=== PATIENT | male | born 1945 ===

== ENCOUNTER 2024-12-10 09:56 | Emergency (ER) | payer MEDICARE, MEDICAID, SELFPAY ==
[2024-12-10 10:16] VITALS: BP 106/68; PULSE 106; TEMP 36.5; O2SAT 98; BMI 27.4
[2024-12-10 10:55] VITALS: BP 149/89; PULSE 102; RESP 16; O2SAT 97
--- NOTE | 2024-12-10 10:56 | W.ED.MALEGU ---
HPI - Male Genitourinary General: Chief complaint: Urogenital-Male Stated complaint: trouble urinating, pain Time Seen by Provider: 12/10/24 10:52 Source: patient Mode of arrival: ambulatory Limitations: no limitations History of Present Illness: 79-year-old male states that since Tuesday has been having dysuria. He states it shaw when he urinates. He denies any abdominal pain denies any fever denies urinating blood. Denies any worse improved factors. Associated symptoms: Reports dysuria; Deny nausea or vomiting Related Data Previous Rx's ?Medication ?Instructions ?Recorded cephalexin 500 mg capsule 500 mg PO TID 7 days #21 caps 12/10/24 Allergies Allergy/AdvReac Type Severity Reaction Status Date / Time No Known Allergies Allergy Verified 12/10/24 10:22 Review of Systems Const: Denies: fever(s), chills, body aches or change in appetite ENMT: Denies: throat pain or dental pain Card: Denies: chest pain Resp: Denies: dyspnea GI: Denies: abdominal pain, nausea, vomiting or diarrhea : Reports: dysuria Musc: Denies: neck pain or back pain Skin/Breast: Denies: rash Neuro: Denies: headache(s) Physical Exam Const: COMMON NORMALS: no acute distress, patient oriented x3 and healthy appearing HENMT: COMMON NORMALS: normocephalic and atraumatic HEAD & SCALP: normocephalic and atraumatic Eye: COMMON NORMALS: conjunctivae normal CONJUNCTIVA: Yes conjunctivae normal Neck/C-Spine: COMMON NORMALS: full ROM and supple Chest: COMMONS NORMALS: normal inspection of the chest Resp: COMMON NORMALS: normal respiratory effort Cardio: COMMON NORMALS: regular rate RATE: regular rate GI: COMMON NORMALS: Normal to inspection, nondistended, normoactive bowel sounds present, Soft to palpation, non-tender and no masses PALPATION: Yes Soft to palpation Extremity: COMMON NORMALS: normal to inspection and full ROM Neuro: COMMON NORMALS: patient oriented x3, moves all extremities and no focal motor deficits Psych: COMMON NORMALS: mental status grossly normal, Normal thought process present and cooperative THOUGHT PROCESS: Normal thought process present Skin: COMMON NORMALS: no rashes or lesions noted and no wounds GENERAL SKIN EXAM: no rashes or lesions noted Course Vital Signs: Vital signs: Vital Signs Temperature 97.7 F 12/10/24 10:16 Pulse Rate 102 H 12/10/24 10:55 Respiratory Rate 16 12/10/24 10:55 Blood Pressure 149/89 12/10/24 10:55 Pulse Oximetry 97 12/10/24 10:55 Oxygen Delivery Me thod Room Air 12/10/24 10:16 MDM - Male Medical Decision Making Patient presents for dysuria does have a UTI we will start on antibiotics he is to follow-up with PCP return if worsening he understands agrees to plan. Medical Records I reviewed the patient's medical records. Lab Data I reviewed the patient's lab results. Laboratory Results Urine Color Yellow (Yellow) 12/10/24 10:30 Urine Appearance Turbid (CLEAR) A 12/10/24 10:30 Urine pH 6.0 (5-7) 12/10/24 10:30 Ur Specific [place] 1.027 (1.005-1.030) 12/10/24 10:30 Urine Protein 3+ (Negative) A 12/10/24 10:30 Urine Glucose (UA) 3+ (Normal) H 12/10/24 10:30 Urine Ketones Trace (Negative) 12/10/24 10:30 Urine Blood 3+ (Negative) A 12/10/24 10:30 Urine Nitrate Positive (Negative) A 12/10/24 10:30 Urine Bilirubin Negative (Negative) 12/10/24 10:30 Urine Urobilinogen 1.0 mg/dL (Negative) 12/10/24 10:30 Ur Leukocyte Esterase 1+ (Negative) A 12/10/24 10:30 Urine RBC >100 /hpf (0-2) H 12/10/24 10:30 Urine WBC >100 /hpf (0-5) H 12/10/24 10:30 Ur Squamous Epith Cells 0-5 /hpf (0-5) 12/10/24 10:30 Amorphous Sediment Not Reportable 12/10/24 10:30 Urine Bacteria 4+ /hpf (NONE) H 12/10/24 10:30 Hyaline Casts 2.87 /lpf 12/10/24 10:30 No radiology studies performed this visit Discharge Plan Discharge Patient Disposition: Home Clinical Impression: Urinary tract infection Condition: Stable Prescriptions: New cephalexin 500 mg capsule 500 mg PO TID 7 Days Qty: 21 0RF Discharge Orders: Discharge ED (Routine); Ordered 12/10/24 Ordered By: Robbie Murrieta Discharge Diet: Advance as tolerated Discharge Activity: Resume usual activity Patient Instructions: Urinary Tract Infection in Men (ED) Print Language: Belize[place] Coding Level of Care Code ED Brass Sorter for Phoebe Partida
[2024-12-10 11:04] LABS: Bilirubin Urine Negative (Negative); Blood Urine 3+ (Negative); Glucose Urine UA 3+ (Normal); Ketones Urine Trace (Negative); Leukocyte Esterase Urine 1+ (Negative); Nitrate Urine Positive (Negative); Protein Urine 3+ (Negative); Specific Gravity, Urine 1.027 (1.005-1.030); Urine Appearance Turbid (CLEAR); Urine Color Yellow (Yellow)
[2024-12-10 11:06] LABS: Add Urine Microscopic? YES; Bacteria Urine 4+ /hpf; Hyaline Casts Urine 2.87 /lpf; RBC Urine >100 /hpf (0-2); Squamous Epithelial Cell Urine 0-5 /hpf (0-5); WBC Urine >100 /hpf (0-5)
[2024-12-10 11:17] LABS: Add Urine Culture? Yes; UA Slide Review UA Slide Review Perf
[2024-12-10] MEDS: cefTRIAXone 1,000 MG in water for injection-sterile 2.1 ML 2.1 MG IM (11:31)
[2024-12-10 11:33] VITALS: BP 149/89; PULSE 102; RESP 18; O2SAT 98
== END 2024-12-10 11:34 | disposition home or self-care (01) ==
PROVIDERS: Family Medicine; Emergency Provider Emergency Medicine
DX: N39.0 Urinary tract infection, site not specified (principal)
CPT/HCPCS: 81001; 87077; 87086; 87186; 99284; J0696